=== PATIENT | female | born 1965 | race Caucasian/White ===

== ENCOUNTER 2018-12-02 11:00 | Day surgery (SDC) | payer OTHER ==
[2018-12-02] MEDS ORDERED: FENTAnyl 50 MCG/ML VIAL (12:34)
[2018-12-02] MEDS ORDERED: MIDAZOLAM 1 MG/ML 2 ML INJ ×2 (12:34)
== END 2018-12-02 13:56 | disposition home or self-care (01) ==
LOC: GIL 11:00
DX: Z12.11 Encounter for screening for malignant neoplasm of colon (principal); K64.8 Other hemorrhoids; D12.5 Benign neoplasm of sigmoid colon
CPT/HCPCS: 45380; 88305